=== PATIENT | male | born 1990 | race Two or more races ===

== ENCOUNTER 2019-06-21 00:15 | Inpatient (IN) | payer MEDICAID ==
[~2019-06-21] VITALS: Ht 180.3 cm; Wt 80.9 kg
[2019-06-21 01:57] LABS: AMPHET/METH SCREEN,URINE POSITIVE (NEGATIVE); BARBITURATE SCREEN, URINE NEGATIVE (NEGATIVE); BENZODIAZEPINES SCREEN,URINE NEGATIVE (NEGATIVE); CANNABINOID SCREEN,URINE POSITIVE (NEGATIVE); COCAINE SCREEN,URINE NEGATIVE (NEGATIVE); METHADONE SCREEN, URINE NEGATIVE (NEGATIVE); OPIATE SCREEN,URINE NEGATIVE (NEGATIVE); PHENCYCLIDINE SCREEN,URINE NEGATIVE (NEGATIVE)
[2019-06-21 02:33] LABS: BASOPHILS % (AUTO) 0.4 % (0.0-2.0); EOSINOPHILS % (AUTO) 3.3 % (1.0-6.0); HEMATOCRIT 45.3 % (41-53); HEMOGLOBIN 15.4 g/dL (13.5-17.5); LYMPHOCYTES # (AUTO) 2.1 K/uL (1.0-4.8); LYMPHOCYTES % (AUTO) 17.1 % (22.0-44.0); MEAN CORPUSCULAR HEMOGLOBIN 29.4 pg (26.0-34.0); MEAN CORPUSCULAR HGB CONC 34.1 G/dL (31.0-37.0); MEAN CORPUSCULAR VOLUME 86 fL (80-100); MONOCYTES # (AUTO) 0.8 K/uL (0.1-1.0); MONOCYTES % (AUTO) 6.5 % (2.0-9.0); NEUTROPHILS # (AUTO) 8.7 K/uL (1.8-7.7); NEUTROPHILS % (AUTO) 72.7 % (40.0-70.0); PLATELET COUNT (AUTO) 194 K/uL (150-450); RED BLOOD CELL COUNT(AUTO) 5.25 MIL/uL (4.50-5.90); RED CELL DISTRIBUTION WIDTH 13.3 % (11.5-14.5)
[2019-06-21 02:40] LABS: ANION GAP 7 mmol/L (8-16); CALCIUM, TOTAL 8.7 mg/dL (8.8-10.5); CARBON DIOXIDE 30 mmol/L (22-29); CHLORIDE 105 mmol/L (98-107); CREATININE 0.93 mg/dL (0.60-1.30); GLOMERULAR FILTR. RATE CALC > 60 mL/min (>60); GLUCOSE,RANDOM 110 mg/dL (70-110); POTASSIUM 3.6 mmol/L (3.5-5.1); SODIUM SERUM 142 mmol/L (136-145); UREA NITROGEN, BLOOD 16 mg/dL (7-18)
[2019-06-21 02:45] LABS: ALANINE AMINOTRANSFERASE 37 U/L (12-78); ALBUMIN 3.7 g/dL (3.4-5.0); ALKALINE PHOSPHATASE 63 U/L (46-116); ASPARTATE AMINOTRANSFERASE 18 U/L (15-37); BILIRUBIN,TOTAL 0.2 mg/dL (0.1-1.0); TOTAL PROTEIN, SERUM 6.8 g/dL (6.4-8.2)
[2019-06-21] MEDS ORDERED: HALOPERIDOL 5 MG TABLET PO PRN (09:30)
[2019-06-21] MEDS ORDERED: ZOLPIDEM TARTRATE 10 MG TABLET PO PRN (09:30)
[2019-06-21 11:32] VITALS: BP 121/69
[2019-06-21] MEDS ORDERED: INFLUENZA VIRUS VACCINE QVS 2019-20 (3YR+)/PF 60 MCG/0.5 ML SYRINGE IM ONE (14:30)
[2019-06-21 16:19] VITALS: BP 125/63
[2019-06-21] MEDS: LORazepam 2 MG TABLET PO PRN (17:29)
[2019-06-22 06:20] VITALS: BP 100/63
[2019-06-22 08:33] VITALS: BP 102/60
[2019-06-22] MEDS ORDERED: NICOTINE 21 MG/24 HOUR PATCH TD ONE (09:00)
[2019-06-22] MEDS ORDERED: MAGNESIUM HYDROXIDE SUSPENSION 30 ML UDCUP PO PRN (12:00)
[2019-06-22] MEDS ORDERED: NICOTINE 14 MG/24 HOUR PATCH TD PRN (12:00)
[2019-06-22] MEDS ORDERED: ALBUTEROL SULFATE HFA 90 MCG/PUFF 8 GM INHALER IH PRN (12:00)
[2019-06-22] MEDS ORDERED: ONDANSETRON HCL 4 MG TABLET PO PRN (12:00)
[2019-06-22] MEDS ORDERED: IBUPROFEN 400 MG TABLET PO PRN (12:00)
[2019-06-22] MEDS ORDERED: MAG HYDROX/AL HYDROX/SIMETH ES 30 ML SUSPENSION UDCUP PO PRN (12:00)
[2019-06-22] MEDS ORDERED: CloNIDine HCL 0.1 MG TABLET PO PRN (12:00)
[2019-06-22] MEDS ORDERED: DOCUSATE SODIUM 100 MG CAPSULE PO PRN (12:00)
[2019-06-22] MEDS ORDERED: LOPERAMIDE HCL 2 MG CAPSULE PO PRN (12:00)
[2019-06-22] MEDS ORDERED: ACETAMINOPHEN 325 MG TABLET PO PRN (12:00)
[2019-06-22] MEDS ORDERED: GuaiFENesin/D-METHORPHAN [SUGAR-FREE] 200-20MG/10 ML SYRUP UDCUP PO PRN (12:00)
[2019-06-22] MEDS ORDERED: PETROLATUM,WHITE 28 GM JELLY TP PRN (12:00)
[2019-06-22] MEDS: SERTRALINE HCL 50 MG TABLET PO SCH (13:39)
[2019-06-22 16:25] VITALS: BP 119/67
[2019-06-23 02:50] VITALS: BP 117/65
[2019-06-23] MEDS: LORazepam 2 MG TABLET PO PRN (02:56)
[2019-06-23] MEDS: SERTRALINE HCL 50 MG TABLET PO SCH (09:27)
[2019-06-23 10:39] VITALS: BP 127/61
[2019-06-23 16:12] VITALS: BP 132/79
[2019-06-23] MEDS ORDERED: ONDANSETRON HCL 4 MG/2 ML VIAL IM ONE (19:15)
[2019-06-24 07:12] VITALS: BP 105/73
[2019-06-24 08:00] VITALS: BP 111/65
[2019-06-24] MEDS: SERTRALINE HCL 50 MG TABLET PO SCH (08:32)
[2019-06-24 16:09] VITALS: BP 116/68
[2019-06-25 08:07] LABS: BASOPHILS % (AUTO) 0.6 % (0.0-2.0); EOSINOPHILS % (AUTO) 3.9 % (1.0-6.0); HEMATOCRIT 48.7 % (41-53); HEMOGLOBIN 16.4 g/dL (13.5-17.5); LYMPHOCYTES % (AUTO) 22.4 % (22.0-44.0); MEAN CORPUSCULAR HEMOGLOBIN 29.3 pg (26.0-34.0); MEAN CORPUSCULAR HGB CONC 33.7 G/dL (31.0-37.0); MEAN CORPUSCULAR VOLUME 87 fL (80-100); MONOCYTES # (AUTO) 0.7 K/uL (0.1-1.0); MONOCYTES % (AUTO) 8.2 % (2.0-9.0); NEUTROPHILS # (AUTO) 5.7 K/uL (1.8-7.7); NEUTROPHILS % (AUTO) 64.9 % (40.0-70.0); PLATELET COUNT (AUTO) 228 K/uL (150-450); RED CELL DISTRIBUTION WIDTH 13.3 % (11.5-14.5)
[2019-06-25] MEDS: SERTRALINE HCL 50 MG TABLET PO SCH (08:24)
[2019-06-25 08:25] VITALS: BP 131/69
[2019-06-25 16:46] VITALS: BP 122/67
[2019-06-26 00:28] VITALS: BP 128/63
[2019-06-26] MEDS: SERTRALINE HCL 50 MG TABLET PO SCH (08:54)
[2019-06-26 09:21] VITALS: BP 126/70
[2019-06-26 16:20] VITALS: BP 116/77
[2019-06-26] MEDS ORDERED: SERT50TA12 PO (16:53)
== END 2019-06-26 23:05 | disposition home or self-care (01) | DRG 751 ==
LOC: EMS 00:15 → B2S 09:44
DX: F33.2 Major depressive disorder, recurrent severe without psychotic features (principal); R45.851 Suicidal ideations; E83.51 Hypocalcemia; D72.829 Elevated white blood cell count, unspecified; F19.10 Other psychoactive substance abuse, uncomplicated; F17.210 Nicotine dependence, cigarettes, uncomplicated; F15.10 Other stimulant abuse, uncomplicated; F12.10 Cannabis abuse, uncomplicated; Z91.5 Personal history of self-harm; Z23 Encounter for immunization
CPT/HCPCS: 90686; G0480; J2405; Q0162

== ENCOUNTER 2021-03-19 13:29 | Emergency (ER) | payer MEDICAID, OTHER ==
[~2021-03-19] VITALS: Ht 180.3 cm; Wt 81.8 kg
[~2021-03-19 13:29] MED LIST: SERT-439 PO
[2021-03-19] MEDS ORDERED: HYDROCODONE/ACETAMINOPHEN 5-325 MG TABLET PO ONE (14:15)
[2021-03-19] MEDS ORDERED: SERT-158 PO (14:26)
[2021-03-19 15:04] LABS: APPEARANCE,URINE CLEAR (CLEAR); BILIRUBIN,URINE NEGATIVE (NEGATIVE); GLUCOSE, URINE (UA) NEGATIVE (NEGATIVE); KETONES,URINE NEGATIVE (NEGATIVE); LEUKOCYTE ESTERASE ,URINE MODERATE (NEGATIVE); NITRATE,URINE NEGATIVE (NEGATIVE); OCCULT BLOOD,URINE SMALL (NEGATIVE); PH,URINE 5.5 (5.0-8.0); PROTEIN,URINE TRACE (NEGATIVE); UROBILINOGEN,URINE 0.2 mg/dL (<=1.0)
[2021-03-19 15:21] LABS: RBC,URINE 0-2 /HPF (0-2)
[2021-03-19 15:22] LABS: BACTERIA,URINE None Seen /HPF (None Seen); SQUAMOUS EPITHELIAL CELL,UR Few /LPF (None Seen); WBC,URINE 26-50 /HPF (0-5)
[2021-03-19] MEDS ORDERED: DOXYCYCLINE HYCLATE 100 MG TABLET PO ONE (17:30)
[2021-03-19] MEDS ORDERED: CefTRIAXone SODIUM 1 GM/VIAL IM ONE (17:30)
[2021-03-19] MEDS ORDERED: LIDOCAINE/PF 1% 2 ML VIAL IM ONE (17:30)
[2021-03-19 18:01] VITALS: BP 121/74
== END 2021-03-19 18:02 | disposition home or self-care (01) ==
LOC: EMS 13:31
DX: N45.1 Epididymitis (principal)
CPT/HCPCS: 76870; 81001; 87086; 96372; 99285; J0696; J3490; 87077; 87186

== ENCOUNTER 2024-10-17 19:02 | Emergency (ER) | payer MEDICAID, OTHER ==
[~2024-10-17] VITALS: Ht 180.3 cm; Wt 86.4 kg
[~2024-10-17 19:02] MED LIST changes: +AMOX-457 PO; +SERT-158 PO; -SERT-439 PO
[2024-10-17 19:15] VITALS: TEMP 97.7
[2024-10-17] MEDS: ACETAMINOPHEN/CODEINE 300-30 MG TABLET PO ONE (20:24)
[2024-10-17] MEDS: KETOROLAC TROMETHAMINE 60 MG/2 ML VIAL IM ONE (20:25)
[2024-10-17 20:40] LABS: BASOPHILS % (AUTO) 0.6 % (0.0-2.0); EOSINOPHILS % (AUTO) 5.4 % (1.0-6.0); HEMATOCRIT 41.5 % (41-53); HEMOGLOBIN 14.1 g/dL (13.5-17.5); LYMPHOCYTES # (AUTO) 2.1 K/uL (1.0-4.8); LYMPHOCYTES % (AUTO) 26.1 % (22.0-44.0); MEAN CORPUSCULAR HEMOGLOBIN 28.9 pg (26.0-34.0); MEAN CORPUSCULAR HGB CONC 33.9 G/dL (31.0-37.0); MEAN CORPUSCULAR VOLUME 85 fL (80-100); MONOCYTES # (AUTO) 0.6 K/uL (0.1-1.0); MONOCYTES % (AUTO) 7.9 % (2.0-9.0); NEUTROPHILS # (AUTO) 4.9 K/uL (1.8-7.7); PLATELET COUNT (AUTO) 217 K/uL (150-450); RED BLOOD CELL COUNT(AUTO) 4.86 MIL/uL (4.50-5.90); RED CELL DISTRIBUTION WIDTH 13.7 % (11.5-14.5); WHITE BLOOD COUNT (AUTO) 8.2 K/uL (4.5-11.0)
[2024-10-17 20:45] LABS: ANION GAP 6 mmol/L (8-16); CALCIUM, TOTAL 8.5 mg/dL (8.8-10.5); CARBON DIOXIDE 31 mmol/L (22-29); CHLORIDE 101 mmol/L (98-107); CREATININE 0.81 mg/dL (0.60-1.30); GLOMERULAR FILTR. RATE CALC > 60 mL/min (>60); GLUCOSE,RANDOM 96 mg/dL (70-110); POTASSIUM 4.4 mmol/L (3.5-5.1); SODIUM SERUM 138 mmol/L (136-145); UREA NITROGEN, BLOOD 14 mg/dL (7-18)
[2024-10-17 20:55] LABS: TROPONIN I-HIGH SENSITIVITY 15 ng/L (<76)
[2024-10-17 21:00] VITALS: BP 125/73; PULSE 68; RESP 18; O2SAT 100
== END 2024-10-17 21:15 | disposition home or self-care (01) ==
LOC: EMS 19:02
DX: S29.012A Strain of muscle and tendon of back wall of thorax, initial encounter (principal); R07.89 Other chest pain; Z79.899 Other long term (current) drug therapy; X58.XXXA Exposure to other specified factors, initial encounter; Y93.89 Activity, other specified; Y92.89 Other specified places as the place of occurrence of the external cause; Y99.8 Other external cause status
CPT/HCPCS: 99285; 71045; 80048; 83690; 84484; 85025; 36415; 73030; 93005; 96372; J1885

== ENCOUNTER 2024-10-17 22:41 | Emergency (ER) | payer MEDICAID, OTHER ==
[~2024-10-17] VITALS: Ht 172.7 cm; Wt 89.0 kg
[2024-10-18 01:11] VITALS: BP 119/69; PULSE 62; RESP 14; TEMP 98.01056042240; O2SAT 97
== END 2024-10-18 02:49 | disposition home or self-care (01) ==
LOC: EMS 22:42
DX: T78.49XA Other allergy, initial encounter (principal); Z79.899 Other long term (current) drug therapy; X58.XXXA Exposure to other specified factors, initial encounter
CPT/HCPCS: 99283; Z7502